=== PATIENT | female | born 1955 | race Caucasian/White ===

== ENCOUNTER 2019-12-19 10:33 | Inpatient (IN) ==
[2019-12-19 14:14] LABS: URINE SOURCE CLEAN CATCH
[2019-12-19 14:17] LABS: BILIRUBIN URINE NEGATIVE (NEGATIVE); BLOOD URINE LARGE (NEGATIVE); COLOR BROWN; GLUCOSE URINE NEGATIVE (NEGATIVE); KETONE URINE NEGATIVE (NEGATIVE); LEUKOCYTES URINE LARGE (NEGATIVE); NITRITE URINE NEGATIVE (NEGATIVE); PROTEIN URINE 300 mg/dL (NEGATIVE); SP GRAVITY URINE 1.028; TURBIDITY URINE TURBID (CLEAR); UR EPITHELIAL CELLS <10 /HPF (<10); URINE BACTERIA NEGATIVE /HPF; URINE RBC 20-40 /HPF (<10); URINE WBC TNTC /HPF (<10); UROBILINOGEN URINE NORMAL (NORMAL)
[2019-12-19] MEDS ORDERED: TORADOL IV ONE (14:39)
[2019-12-19] MEDS ORDERED: NS 1,000 ML IV ONE (14:39)
[2019-12-19] MEDS ORDERED: ROCEPHIN 1 GM in NS 50 ML IV ONE (14:46)
[2019-12-19 15:38] LABS: BASO# 0.06 X1000 (0.0-0.2); BASO% 0.3 % (0.0-0.8); EOS# 0.09 X1000 (0.0-0.7); EOS% 0.4 % (0.0-10.0); HEMATOCRIT 45.2 % (37.0-47.0); IMM GRAN# 0.05 X1000 (0.0-0.04); IMM GRAN% 0.2 % (0.0-0.5); LYMPH# 2.57 X1000 (1.2-3.4); LYMPH% 12.7 % (20.5-51.1); MCH 29.5 PG (27-31); MCV 95.2 FL (81-99); MONO# 1.35 X1000 (0.11-0.59); MONO% 6.7 % (1.7-9.3); MPV 9.9 FL (7.4-10.4); NEUT# 16.06 X1000 (1.4-6.5); NEUT% 79.7 % (42.2-75.2); PLT 302 X1000 (130-400); RBC 4.75 XMIL (4.2-5.4); RDW 15.4 % (11.5-14.5); WBC 20.18 X1000 (4.8-10.8)
--- NOTE | 2019-12-19 15:48 | Diag Imaging Result Doc PS360 ---
EXAM: CT ABDOMEN/PELVIS W/O CONTRAST INDICATION: right flank pain TECHNIQUE: This exam was performed using automated exposure control, adjustment of mA or kV according to patient size, and/or use of iterative reconstruction technique. COMPARISON: 11/07/2017 FINDINGS: There has been a prior cholecystectomy. There is a small cystic appearing focus at the inferior aspect of the liver that is stable. The liver is unremarkable, otherwise. The spleen exhibits an irregular morphology. This may be due to a distant trauma or could be congenital. It is stable. The pancreas and adrenal glands are essentially unremarkable. There is bilateral nephrolithiasis and there is a large obstructing stone in the proximal right ureter just distal to the right UPJ measuring up to 8 mm and causing severe right hydronephrosis. There is no hydronephrosis on the left. The urinary bladder is nondistended. There is evidence of a prior hysterectomy. There are metallic anatoly associated with the stomach. There is no evidence of focal bowel wall thickening or bowel obstruction. There is abundant stool in the colon. There are bilateral fat-containing inguinal hernias. No free abdominal gas or free fluid is identified. IMPRESSION: 1.Bilateral nephrolithiasis with an 8 mm obstructing stone in the proximal right ureter causing severe right hydronephrosis. 2.Possible constipation. 3.Other incidental/nonacute findings detailed above. Electronically signed by Neymar Spence 12/19/2019 3:45 PM
[2019-12-19 15:51] LABS: ALB/GLOB RATIO 1.3; ALBUMIN 3.9 g/dL (3.5-5.0); CALCIUM 9.3 mg/dL (8.8-10.2); CREATININE 1.3 mg/dL (0.5-0.9); POTASSIUM 4.6 mmol/L (3.5-5.1); TOTAL BILIRUBIN 0.46 mg/dL (0.20-1.00); TOTAL PROTEIN 6.9 g/dL (6.3-8.3)
[2019-12-19 17:08] LABS: INR 1.04; PROTIME 13.7 Seconds (11.0-16.0)
[2019-12-19 17:09] LABS: PTT 28.7 Seconds (22.3-41.8)
--- NOTE | 2019-12-19 17:11 | PROVIDER DOCUMENTATION ---
This chart was entered by Suzy Mathur Scribe, acting as scribe for Sary Moe MD. HPI-Female /OB/Breast - General Chief Complaint: Flank Pain Stated Complaint: POSS KIDNEY STONE Time Seen by Provider: 12/19/19 14:03 Source: reports: patient Allergies/Adverse Reactions: Patient Allergies Allergy/AdvReac Type Severity Reaction Status Date / Time ondansetron [From Zofran] Allergy Mild ITCHING Verified 12/19/19 13:48 Home Medications: Home Medication List Medication Instructions Recorded Confirmed Last Taken Type Amlodipine Besylate [Norvasc] 10 mg PO DAILY 12/09/15 11/09/17 08/14/17 08:30 History LISINOpril [Prinivil] 5 mg PO DAILY #30 tablet 12/16/15 11/09/17 08/13/17 08:00 Rx Pantoprazole [Protonix] 40 mg PO DAILY@0700 01/12/16 11/09/17 08/13/17 07:00 History Trazodone [Desyrel] 50 mg PO QHS 01/12/16 11/09/17 08/13/17 21:00 History Hydrocodone/Acetaminophen [[place] 1 each PO Q6HR 03/22/16 11/09/17 08/14/17 08:30 History 10-325 Tablet] Metoprolol Succinate E.r. [Toprol 25 mg PO DAILY 03/22/16 11/09/17 08/14/17 08:30 History Xl] Amitriptyline [Elavil] 25 mg PO HS 07/25/16 11/09/17 08/13/17 21:00 History Bupropion HCl [Wellbutrin Xl] 150 mg PO DAILY 08/03/17 11/09/17 08/14/17 08:30 History Gabapentin [Neurontin] 800 mg PO BID 11/09/17 11/09/17 Unknown History - History of Present Illness-Female /OB Nature of Presenting Problem: Patient is a 64 year old female who presents with right flank pain. States flank pain radiates to right groin. Reports dysuria with pain. States symptoms started this morning. Reports finishing Macrobid for an UTI recently. History of kidney stones. Does patient report she is ?: No Location of complaint: reports: right flank Radiation: reports: groin (right) Quality of Pain: reports: aching Severity in ED: reports: mild Onset/Duration: reports: this morning Timing: reports: still present Context/Activities at Onset: reports: light activity Urinary Symptoms: reports: dysuria Associated Symptoms: reports: denies symptoms Similar Symptoms Previously?: No Recently seen or treated by another doctor?: Yes Review of Systems - Adult - REVIEW OF SYSTEMS - ADULT Constitutional: reports: no symptoms reported Eyes: reports: no symptoms reported Ears, Nose, Mouth & Throat: reports: no symptoms reported Cardiovascular: reports: no symptoms reported Respiratory: reports: no symptoms reported Gastrointestinal: reports: see HPI, abdominal pain (right groin). denies: nausea, vomiting Genitourinary: reports: see HPI, dysuria, flank pain (right) Musculoskeletal: reports: no symptoms reported Integumentary: reports: no symptoms reported Neurological: reports: no symptoms reported Psychiatric: reports: no symptoms reported Endocrine: reports: no symptoms reported Hematologic/Lymphatic: reports: no symptoms reported Allergic/Immunologic: reports: no symptoms reported All Other Systems: Reviewed and Negative Past History - Adult - PAST MEDICAL HISTORY-ADULT Review of Records: reports: Old Records Reviewed, Nursing Assessment Review, Medications Reviewed, Social history reviewed & non-contributory. Major Childhood Illnesses: reports: denies history Cardiovascular: reports: CAD (carotid stenosis), HTN, hyperlipidemia Respiratory: reports: denies history Gastrointestinal: reports: denies history Obstetrical/Gynecological: reports: other Genitourinary: reports: kidney stones Musculoskeletal: reports: chronic pain, fibromyalgia Neurological: reports: denies history Psychiatric: reports: denies history Endocrine/Immune: reports: denies history Other Conditions: reports: denies history - PRIOR SURGERIES/PROCEDURES Surgical/Procedure History: reports: cholecystectomy (partial spleenectomy and liver), hysterectomy, BTL, tonsillectomy, other (partial spleenectomy and liver) - IMMUNIZATION STATUS Childhood Immunizations: See Nurse Assessment Flu Vaccine: See Nurse Assessment - FAMILY HISTORY Family History: reviewed, not pertinent - SOCIAL HISTORY Smoking: denies Substance Use: denies Living Situation: family Physical Exam-General - PHYSICAL EXAM-ADULT Initial Vital Signs Reviewed: Yes - CONSTITUTIONAL General Appearance: alert, no apparent distress - HEAD, EARS, NOSE, MOUTH & THROAT HENMT: normocephalic/atraumatic, moist mucous membranes - RESPIRATORY Respiratory: chest non-tender, lungs clear, normal breath sounds - CARDIOVASCULAR Cardiovascular: regular rate, rhythm - GASTROINTESTINAL (ABDOMEN) Abdominal Exam: normal bowel sounds, non tender, soft - MUSCULOSKELETAL Back Exam: CVA tenderness (right) Extremity: non-tender, normal inspection - SKIN Integumentary: normal color, normal turgor, warm/dry - NEUROLOGIC Neurologic: grossly normal - PSYCHIATRIC Psych/Mental Status: normal mood/affect, normal thought content, normal thought process, oriented x 3 Progress - PLAN OF CARE/RESULTS Progress/Plan/Lab Results: Vital Signs - 8 hr 12/19/19 11:08 Temperature 99.0 F Pulse Rate 98 H Respiratory Rate 18 Blood Pressure 120/76 O2 Sat by Pulse Oximetry 95 Laboratory Results - last 24 hr 12/19/19 12/19/19 12/19/19 11:17 15:15 15:15 WBC 20.18 H RBC 4.75 Hgb 14.0 Hct 45.2 MCV 95.2 MCH 29.5 MCHC 31.0 L RDW Std Deviation 15.4 H Plt Count 302 MPV 9.9 Immature Gran % (Auto) 0.2 Neut % (Auto) 79.7 H Lymph % (Auto) 12.7 L Cook % (Auto) 6.7 Eos % (Auto) 0.4 Baso % (Auto) 0.3 Immature Gran # (Auto) 0.05 H Neut # (Auto) 16.06 H Lymph # (Auto) 2.57 Cook # (Auto) 1.35 H Eos # (Auto) 0.09 Baso # (Auto) 0.06 PT INR PTT (Actin FS) Sodium 141 Potassium 4.6 Chloride 104 Carbon Dioxide 27 Anion Gap 10 BUN 21 Creatinine 1.3 H Estimated GFR/1.73 m2 41 BUN/Creatinine Ratio 16 Glucose 105 H Calculated Osmolality 285 Calcium 9.3 Magnesium Total Bilirubin 0.46 AST 20 ALT 11 Alkaline Phosphatase 66 Creatine Kinase Troponin T High Sens Total Protein 6.9 Albumin 3.9 Globulin 3.0 Albumin/Globulin Ratio 1.3 Urine Source CLEAN CATCH Urine Color BROWN Urine Turbidity TURBID Urine pH 6.0 Ur Specific [place] 1.028 Urine Protein 300 A Ur Glucose (Stick) NEGATIVE Ur Ketones (Stick) NEGATIVE Urine Blood LARGE A Urine Nitrite NEGATIVE Urine Bilirubin NEGATIVE Urobilinogen Dipstick NORMAL Urine Leukocytes LARGE A Urine WBC (Auto) TNTC A Urine RBC (Auto) 20-40 A U Epithel Cells (Auto) <10 Urine Bacteria (Auto) NEGATIVE Urine Crystals Not Reportable Small Round Cells Not Reportable Urine Casts Not Reportable Urine Yeast-like Cells Not Reportable 12/19/19 12/19/19 12/19/19 15:15 15:15 15:15 WBC RBC Hgb Hct MCV MCH MCHC RDW Std Deviation Plt Count MPV Immature Gran % (Auto) Neut % (Auto) Lymph % (Auto) Cook % (Auto) Eos % (Auto) Baso % (Auto) Immature Gran # (Auto) Neut # (Auto) Lymph # (Auto) Cook # (Auto) Eos # (Auto) Baso # (Auto) PT 13.7 INR 1.04 PTT (Actin FS) 28.7 Sodium Potassium Chloride Carbon Dioxide Anion Gap BUN Creatinine Estimated GFR/1.73 m2 BUN/Creatinine Ratio Glucose Calculated Osmolality Calcium Magnesium Total Bilirubin AST ALT Alkaline Phosphatase Creatine Kinase 92 Troponin T High Sens 35 H Total Protein Albumin Globulin Albumin/Globulin Ratio Urine Source Urine Color Urine Turbidity Urine pH Ur Specific [place] Urine Protein Ur Glucose (Stick) Ur Ketones (Stick) Urine Blood Urine Nitrite Urine Bilirubin Urobilinogen Dipstick Urine Leukocytes Urine WBC (Auto) Urine RBC (Auto) U Epithel Cells (Auto) Urine Bacteria (Auto) Urine Crystals Small Round Cells Urine Casts Urine Yeast-like Cells 12/19/19 15:15 WBC RBC Hgb Hct MCV MCH MCHC RDW Std Deviation Plt Count MPV Immature Gran % (Auto) Neut % (Auto) Lymph % (Auto) Cook % (Auto) Eos % (Auto) Baso % (Auto) Immature Gran # (Auto) Neut # (Auto) Lymph # (Auto) Cook # (Auto) Eos # (Auto) Baso # (Auto) PT INR PTT (Actin FS) Sodium Potassium Chloride Carbon Dioxide Anion Gap BUN Creatinine Estimated GFR/1.73 m2 BUN/Creatinine Ratio Glucose Calculated Osmolality Calcium Magnesium 1.8 Total Bilirubin AST ALT Alkaline Phosphatase Creatine Kinase Troponin T High Sens Total Protein Albumin Globulin Albumin/Globulin Ratio Urine Source Urine Color Urine Turbidity Urine pH Ur Specific [place] Urine Protein Ur Glucose (Stick) Ur Ketones (Stick) Urine Blood Urine Nitrite Urine Bilirubin Urobilinogen Dipstick Urine Leukocytes Urine WBC (Auto) Urine RBC (Auto) U Epithel Cells (Auto) Urine Bacteria (Auto) Urine Crystals Small Round Cells Urine Casts Urine Yeast-like Cells Orders Category Date Time Status Admit Patient To Inpatient Status Routine AdmDCTranf 12/19/19 17:32 Active Cardiac Monitoring DIRECTED Care 12/19/19 16:51 Active Daily Weights 0500 Care 12/19/19 17:29 Active Intake and Output-Strict ORDERED Care 12/19/19 17:29 Active Notify MD of + Sepsis Screen NOW Care 12/19/19 16:51 Active Notify Physician As Ordered Care 12/19/19 16:51 Active Nursing- MD Consult Request ROUTINE Care 12/19/19 16:59 Active Vital Signs Order Q 4-HR ASSESS Care 12/19/19 17:31 Active Z-Document. for Tele Applied ORDERED Care 12/19/19 17:28 Active MD [Physician/Provider Consults] Routine Cons 12/19/19 16:58 Ordered Heart Healthy Diet Diet 12/19/19 17:33 Active CHEST-1 VIEW [RAD] Stat Exams 12/19/19 16:[address] ABDOMEN/PELVIS W/O CONTRAST [CT] Stat Exams 12/19/19 14:25 Completed BASIC METABOLIC PANEL [CHEM] DAILY Lab 12/20/19 06:00 Ordered BASIC METABOLIC PANEL [CHEM] DAILY Lab 12/21/19 06:00 Ordered BASIC METABOLIC PANEL [CHEM] DAILY Lab 12/22/19 06:00 Ordered BLOOD CULTURE [BLDCUL] Stat Lab 12/19/19 16:51 Uncollected CBC WITH DIFF [HEME] DAILY Lab 12/20/19 06:00 Ordered CBC WITH DIFF [HEME] DAILY Lab 12/21/19 06:00 Ordered CBC WITH ELECTRONIC DIFF [HEME] Stat Lab 12/19/19 15:15 Completed CK PROFILE [SP CHEM] Stat Lab 12/19/19 15:15 Completed COMPREHENSIVE METABOLIC PANEL [CHEM] Stat Lab 12/19/19 15:15 Completed LACTATE, PLASMA [CHEM] Lab 12/19/19 17:00 Uncollected LACTATE, PLASMA [CHEM] Lab 12/19/19 20:00 Uncollected LACTATE, PLASMA [CHEM] Lab 12/19/19 23:00 Uncollected MAGNESIUM [CHEM] Stat Lab 12/19/19 15:15 Completed PROTIME WITH INR [COAG] Stat Lab 12/19/19 15:15 Completed PTT [COAG] Stat Lab 12/19/19 15:15 Completed TROPONIN T HIGH SENSITIVITY Stat Lab 12/19/19 15:15 Completed URINALYSIS W/POSS RFLX CULT [URINALYSIS] Stat Lab 12/19/19 11:17 Completed URINE CULTURE [RM] Routine Lab 12/19/19 12:00 Received URINE MANUAL MICROSCOPIC [URINALYSIS] Stat Lab 12/19/19 11:17 Completed 0.9% Sodium Chloride Inj [Ns] 1,000 ml Med 12/19/19 17:30 Ordered IV 100 mls/hr 0.9% Sodium Chloride Inj [Ns] 1,000 ml Med 12/19/19 14:39 Discontinued IV 999 mls/hr Acetaminophen [Tylenol] Med 12/19/19 17:31 Ordered 650 mg PO Q6H PRN PRN CefEPIME [Maxipime] 1 gm Med 12/19/19 17:30 Ordered 0.9% Sodium Chloride Inj [Ns] 50 ml IV Q12H CefTRIAXONE [Rocephin] 1 gm Med 12/19/19 14:46 Discontinued 0.9% Sodium Chloride Inj [Ns] 50 ml IV NOW Hydrocodone/APAP 5 mg/325 mg [[place]-5] Med 12/19/19 17:32 Ordered 1 each PO Q6H PRN PRN Ketorolac [Toradol] Med 12/19/19 14:39 Discontinued 30 mg IV NOW ONE Prochlorperazine [Compazine] Med 12/19/19 17:30 Ordered 10 mg IV 4XDAY PRN PRN Oxygen Device Stat Oth 12/19/19 16:51 Active Pulse Oximetry Routine Oth 12/19/19 17:30 Active Telemetry [OM.EQ] Routine Oth 12/19/19 17:28 Active Transfer/Admit Order [TRANSFER] Routine Transfer 12/19/19 17:32 Ordered Result Diagrams: 12/19/19 15:15 12/19/19 15:15 - CT/MRI 1 CT Study: Abdomen, Pelvis Impression: See EMR Report ( EXAM: CT ABDOMEN/PELVIS W/O CONTRAST INDICATION: right flank pain TECHNIQUE: This exam was performed using automated exposure control, adjustment of mA or kV according to patient size, and/or use of ite rative reconstruction technique. COMPARISON: 11/07/2017 FINDINGS: There has been a prior cholecystectomy. There is a small cystic appearing focus at the inferior aspect of the liver that is stable. The liver is unremarkable, otherwise. The spleen exhibits an irregular morphology. This may be due to a distant trauma or could be congenital. It is stable. The pancreas and adrenal glands are essentially unremarkable. There is bilateral nephrolithiasis and there is a large obstructing stone in the proximal right ureter just distal to the right UPJ measuring up to 8 mm and causing severe right hydronephrosis. There is no hydronephrosis on the left. The urinary bladder is nondistended. There is evidence of a prior hysterectomy. There are metallic anatoly associated with the stomach. There is no evidence of focal bowel wall thickening or bowel obstruction. There is abundant stool in the colon. There are bilateral fat- containing inguinal hernias. No free abdominal gas or free fluid is identified. IMPRESSION: 1.Bilateral nephrolithiasis with an 8 mm obstructing stone in the proximal right ureter causing severe right hydronephrosis. 2.Possible constipation. 3.Other incidental/nonacute findings detailed above. Electronically signed by Neymar Spence 12/19/2019 3:45 PM 12/19/19 1545 I nterpreting Physician: Neymar Spence MD Dictated Date/Time: 12/19/19 1540 cc: Sary Moe MD; Ofelia Aggarwal MD) - CONSULTS/PCP/HOSPITALIST Notification #1 *Consult/PCP/Hospitalist*: [place] Time Discussed: 17:00 Consult Disposition: Will see in ED, other #2 Consult: Dr. Cavanaugh Time Discussed: 17:36 Consult Disposition: Admit Departure - Departure Date of Disposition Decision: 12/19/19 Time of Disposition Decision: 16:10 DIAGNOSIS: Renal insufficiency, Hydronephrosis of right kidney, UTI (urinary tract infection), Ureterolithiasis Disposition: HOME 01 Certified Medical Emergency: Emergent Condition: Stable Referrals and Follow-Ups: Ofelia Aggarwal MD [Primary Care Provider] - - Critical Care Note This patient required my direct & personal management of CC.: No Attestation - Physician/ JED Attestation The physician spent face to face time with patient:: Yes Advanced Practice Provider documentation review:: Supervising physician onsite and consulted in the evaluation and care of this patient. The physician did have a face to face encounter with the patient. This chart was documented by the shavon scribe, (Suzy Mathur Scribe) and accurately reflects the services I performed and decisions made by me, Sary Moe MD, as attested by the provider's signature.
--- NOTE | 2019-12-19 17:21 | Diag Imaging Result Doc PS360 ---
EXAM: CHEST-1 VIEW HISTORY: Sepsis protocol TECHNIQUE: Single view COMPARISON: 11/11/2017 FINDINGS: The lungs are well expanded. The heart is not enlarged. The vessels are not distended. There are no infiltrates. No effusion identified. IMPRESSION: No pneumonia Electronically signed by Enrique Wall 12/19/2019 5:19 PM
[2019-12-19] MEDS ORDERED: COMPAZINE IV PRN (17:30)
[2019-12-19] MEDS ORDERED: NS 1,000 ML IV SCH (17:30)
[2019-12-19] MEDS ORDERED: TYLENOL PO PRN (17:31)
[2019-12-19] MEDS ORDERED: NORCO-5 PO PRN (17:32)
[2019-12-19 19:50] LABS: UR PROT RANDOM 362.5 mg/dL
--- NOTE | 2019-12-19 20:40 | HISTORY AND PHYSICAL ---
PRIMARY CARE PHYSICIAN: Dr. Ofelia Aggarwal. UROLOGIST: Dr. Alvarez. CHIEF COMPLAINT: "I started having flank pain this morning and blood in my urine." HISTORY OF PRESENT ILLNESS: Ms. Valerio is a 64-year-old female, with a history of recurrent UTIs and known bilateral renal stones with multiple urologic procedures, who initially presented to the ER today with a chief complaint of right flank pain associated with abdominal pain. The patient reports that she has been on antibiotic therapy all last month. She was seen by Dr. Aggarwal and given a prescription for Bactrim DS, which she completed the 10-day course. She had a repeat urinalysis done and was noted to still have urinary tract infection, and was given a 10-day course of Macrobid, which she just completed. The patient reports that she has not been having fever, chills, or change in appetite. She also noted that she had blood in her urine, so that concerned her along with the flank pain, and decided to come to the ER today. In the ER, a CT of the abdomen and pelvis was done that revealed bilateral nephrolithiasis, with an 8 mm obstructing stone in the proximal right ureter, causing severe right hydronephrosis. Also, the patient was noted to have a white blood cell count of 20,000 and a creatinine of 1.3. PAST MEDICAL HISTORY: 1. Recurrent urinary tract infections. 2. Hypertension. 3. Chronic back pain. 4. Fibromyalgia. 5. Bilateral renal stones. 6. Right hydronephrosis. 7. Osteoporosis. 8. Right ureteral stone. 9. GERD. PAST SURGICAL HISTORY: 1. Left trochanteric fixation nail placement. 2. Left knee screw removal. 3. Cholecystectomy. 4. Splenectomy. 5. Hysterectomy. 6. Tonsillectomy. 7. Bilateral tubal ligation. 8. Liver resection. 9. Cystoscopy with right double-J stent in November 2015. 10. Lithotripsy with right double-J stent removal in January 2016. 11. Cystoscopy with right ureteroscopy in March 2016. 12. Cystoscopy with right percutaneous nephrostolithotomy in July 2016. 13. Right ORIF of trimalleolar ankle fracture. FAMILY HISTORY: Reviewed and noncontributory. SOCIAL HISTORY: The patient is . She is retired. She denies any tobacco, alcohol or illicit drug use. The patient has 3 children. ALLERGIES: Zofran. HOME MEDICATIONS: The medication list is not available at this time. REVIEW OF SYSTEMS: A 12-point review of systems has been performed. Please refer to the History of Present Illness for pertinent positives and negatives. PHYSICAL EXAMINATION: VITAL SIGNS: Temperature 99 degrees, blood pressure 120/76, heart rate 98, respirations 18, O2 saturations 95% on room air. GENERAL: This is an elderly female sitting up in the stretcher, in no acute distress. SKIN: No rashes. No lesions. Normal capillary refill. HEENT: Normocephalic. PERRLA. EOMI. Oral mucosa is moist. Trachea is midline. NECK: Supple. No JVD. HEART: S1, S2 normal. Regular rate and rhythm. LUNGS: Clear to auscultation bilaterally. No wheezing. No rales. No rhonchi. ABDOMEN: Positive bowel sounds. Soft, nontender, and nondistended. BACK: Positive for right flank tenderness. EXTREMITIES: No edema, no cyanosis, no calf tenderness. Peripheral pulses are palpable. NEUROLOGIC: The patient is alert and oriented x4. No focal neurologic deficits noted. Cranial nerves 2 through 12 intact. LABS: White blood cell count 20, hemoglobin 14, hematocrit 45, platelets 302,000. INR 1. Sodium 141, potassium 4.6, chloride 104, CO2 27, BUN 21, creatinine 1.3, glucose 105. UA has large leukocytes, positive for WBCs, large blood. IMAGING: CT of the abdomen and pelvis revealed bilateral nephrolithiasis with an 8 mm obstructing stone in the proximal right ureter, causing severe right hydronephrosis. Constipation. Chest x-ray: No acute disease. ASSESSMENT AND PLAN: 1. Bilateral nephrolithiasis with an obstructing right ureteral stone, with severe right hydronephrosis and urinary tract infection. The patient will be admitted. We will start intravenous fluids and broad-spectrum antibiotics. A urine culture has been obtained. Blood cultures have also been ordered. We will also consult with the urologist. We will make the patient n.p.o. after midnight for a possible urologic procedure. 2. Recurrent UTI. A urine culture has been obtained. Will start IV antibiotic therapy. 3. Hypertension. Controlled. We will restart the patient's antihypertensive regimen. 4. Osteoporosis. Aware. 5. Leukocytosis. Likely secondary to the patient's underlying urinary tract infection. The patient has been started on antibiotics. 6. Gastroesophageal reflux disease. We will start the patient on Protonix. 7. Acute kidney injury. This is likely secondary to obstruction as a result of the patient's obstructing ureteral stone. The patient is on intravenous fluids. We will monitor her urine output closely. We will also order Brooks catheter to be placed. 8. Deep vein thrombosis prophylaxis. We will start the patient on sequential compression devices. 9. Disposition. The patient and her are in agreement with the treatment plan, and they are agreeable to admission. cc: Kusum Fernandez MD MTDD
[2019-12-19] MEDS: MORPHINE IV PRN (20:44)
[2019-12-19] MEDS: MAXIPIME 1 GM in NS 50 ML IV SCH (20:47)
[2019-12-19] MEDS: NS 1,000 ML IV SCH (20:48)
[2019-12-20 04:17] LABS: BASO# 0.04 X1000 (0.0-0.2); BASO% 0.3 % (0.0-0.8); EOS# 0.17 X1000 (0.0-0.7); EOS% 1.1 % (0.0-10.0); HEMATOCRIT 42.3 % (37.0-47.0); HEMOGLOBIN 13.1 g/dL (12.0-16.0); IMM GRAN# 0.04 X1000 (0.0-0.04); IMM GRAN% 0.3 % (0.0-0.5); LYMPH% 18.9 % (20.5-51.1); MCH 29.5 PG (27-31); MCV 95.3 FL (81-99); MONO# 1.13 X1000 (0.11-0.59); MONO% 7.6 % (1.7-9.3); MPV 9.6 FL (7.4-10.4); NEUT# 10.67 X1000 (1.4-6.5); NEUT% 71.8 % (42.2-75.2); PLT 237 X1000 (130-400); RBC 4.44 XMIL (4.2-5.4); RDW 15.3 % (11.5-14.5); WBC 14.85 X1000 (4.8-10.8)
[2019-12-20 04:56] LABS: AGAP 9; BUN 17 mg/dL (8-22); CALCIUM 7.6 mg/dL (8.8-10.2); CHLORIDE 108 mmol/L (98-107); COSMO 283; CREATININE 0.9 mg/dL (0.5-0.9); ESTIMATED GFR > 60; GLUCOSE 104 mg/dL (70-104); POTASSIUM 3.6 mmol/L (3.5-5.1); SODIUM 141 mmol/L (136-145); TCO2 24 mmol/L (25-35)
[2019-12-20] MEDS: PROTONIX IV SCH (06:14)
[2019-12-20] MEDS: NS 1,000 ML IV SCH ×2 (06:14→16:54)
[2019-12-20] MEDS: SODIUM CHLORIDE 0.9% INJ SCH (06:15)
[2019-12-20] MEDS: MORPHINE IV PRN ×4 (06:19→21:21)
[2019-12-20] MEDS ORDERED: NORCO-10 PO SCH (08:00)
[2019-12-20] MEDS: TOPROL XL PO SCH (08:15)
[2019-12-20] MEDS: MAXIPIME 1 GM in NS 50 ML IV SCH ×2 (10:27→21:25)
[2019-12-20] MEDS ORDERED: XYLOCAINE-MPF 2% ONE (13:46)
[2019-12-20] MEDS ORDERED: DIPRIVAN 1% ONE (13:46)
[2019-12-20] MEDS ORDERED: ROBINUL ONE ×2 (13:46→14:46)
[2019-12-20] MEDS ORDERED: DECADRON ONE (14:18)
[2019-12-20] MEDS ORDERED: TORADOL ONE (14:18)
[2019-12-20] MEDS ORDERED: PHENERGAN ONE (14:19)
[2019-12-20] MEDS ORDERED: ZEMURON ONE (14:42)
--- NOTE | 2019-12-20 14:45 | CONSULTATION ---
DATE OF CONSULTATION: 12/20/2019 CHIEF COMPLAINT: Right flank pain with blood in the urine. HISTORY OF PRESENT ILLNESS: Mrs Valerio is a 64-year-old female with history of urinary tract infections as well as nephrolithiasis who has undergone prior urologic procedures, who presented to the emergency room complaining of right flank pain yesterday. She has been treated recently several times with urinary tract infections growing E coli that was pansensitive. However, her symptoms go away and then return. The patient had a CT scan performed in the emergency room which showed a large obstructing right ureteral stone in the mid to proximal ureter measuring approximately 8 mm. The patient states she has had prior stones before, and was seen previously by Dr. Alvarez and underwent extracorporeal shock lithotripsy as well as percutaneous nephrostolithotomy for stones. The patient states her pain is slightly improved since admission. She had an elevated white blood cell count on admission of 20, creatinine 1.3. Labs downtrended today with a white blood cell count of 14.9, and creatinine 0.9. She denies any fevers at home, but has been having dysuria with associated nausea and was admitted to the hospitalist for observation overnight. ALLERGIES: Zofran. HOME MEDICATIONS: 1. Elavil 50 mg p.o. daily. 2. Amlodipine 10 mg p.o. daily. 3. Biotin 1000 mcg p.o. b.i.d. 4. Calcium and vitamin D 1 tablet b.i.d. 5. Zyrtec 10 mg p.o. daily. 6. Prolia 60 mg subcutaneous every 6 months. 7. Colace 100 mg b.i.d. 8. Lexapro 100 mg p.o. daily. 9. Gabapentin 100 mg b.i.d. 10. Hydrocodone/ acetaminophen 10/325 mg p.o. t.i.d. 11. Lisinopril 5 mg p.o. daily. 12. Metoprolol 25 mg p.o. daily. 13. Protonix 40 mg p.o. daily. 14. MiraLAX 17 g p.o. daily. 15. Trazodone 50 mg p.o.. PAST MEDICAL HISTORY: 1. Fibromyalgia. 2. Chronic back pain. 3. Recurrent urinary tract infections. 4. History of nephrolithiasis. 5. Osteoporosis. 6. Gastroesophageal reflux disease. 7. Hypertension. PAST SURGICAL HISTORY: 1. Left trochanter fixation. 2. Left knee screw. 3. Cholecystectomy. 4. Splenectomy. 5. Hysterectomy. 6. Tonsillectomy. 7. Bilateral tubal ligation. 8. Liver resection for hemangioma. 9. Extracorporeal shockwave lithotripsy. 10. Ureteroscopy for stones. 11. Right percutaneous nephrostolithotomy in 2016. 12. Right open reduction internal fixation of the ankle. FAMILY HISTORY: Denies family history of malignancy. SOCIAL HISTORY: She denies tobacco, alcohol, illicit drug use. REVIEW OF SYSTEMS: 12 point review of systems performed all pertinent positives and negatives in HISTORY OF PRESENT ILLNESS:. VITAL SIGNS: Temperature 98.1 degrees heart rate 80, blood pressure 140/79. Oxygen saturation 96% on room. PHYSICAL EXAMINATION: General: No acute distress. Resting comfortably in bed. Alert and oriented x3. HEENT: Normocephalic, atraumatic. Pupils equal, round, reactive to light. Neck: Trachea is midline without masses. Respiratory: Good respiratory without audible wheezing or rales. Cardiovascular: Regular rate and rhythm. Abdomen: Soft nondistended. Slight tenderness to palpation of the right flank and right lower abdomen. : No suprapubic tenderness. Urethral catheter in place. Right CVA tenderness. Musculoskeletal: Moving all extremities. Skin: Skin multiple abdominal incisions with no obvious rashes. Several petechiae are seen over the abdomen which appear to be longstanding. Neuro: Moving all extremities without gross motor or sensory deficits. LABS: White cell count 14.9, hemoglobin 13.1, hematocrit 42.3, platelets 237,000. Sodium 142, potassium 3.6, chloride 108, bicarb 28, BUN 17, creatinine 0.9, glucose 104, and calcium 7.6, lactate 0.9. Urinalysis shows 300 protein, large amount of blood, large amount of leukocytes, too numerous to count white blood cells, 20 to 40 RBCs, negative bacteria. IMAGING: CT of the pelvis stone search with images reviewed which showed a large right proximal ureteral stone measuring approximately 8 mm with associated hydronephrosis and several other smaller fragments seen within the kidney themselves. The patient has smaller left-sided renal stones. ASSESSMENT AND PLAN: Ms. Valerio is a 64-year-old with hypertension, fibromyalgia, chronic back pain, history of nephrolithiasis, osteoporosis, gastroesophageal reflux disease, who presents in consultation regarding right proximal ureteral stone. The patient has been having infections with 2 recent urine cultures growing Escherichia coli, likely related to obstructing ureteral stone. She developed significant pain yesterday and presented to the emergency room where CT scan was performed. The stone appears to be quite large and may be impacted. She had some atrophy of the right kidney with several stones in the kidney itself. The patient has had prior procedures on the right kidney on multiple occasions and undergone prior percutaneous nephrostolithotomy. Looking at the record it seems like it has been difficult in the past to get ureteroscope up into her ureter. We will evaluate today with endoscopic evaluation and try to remove her stone. If unable to perform ureteroscopy we will place a stent before dilation and consideration for second- look ureteroscopy in the future. This was relayed to the patient. The patient expresses minimal desire to have a stent. I told her if I was unable to perform the procedure that I would have to place a stent to dilate the ureter and if there was active infection that she would need to keep a stent. She expressed understanding is willing to proceed. We will plan to do this later today. Discussed the risks, benefits, and alternatives to surgical intervention. After thorough discussion, she will proceed. cc: Clemente Cavanaugh MD MTDD
[2019-12-20] MEDS ORDERED: NEOSTIGMINE ONE (14:46)
--- NOTE | 2019-12-20 15:20 | Diag Imaging Result Doc PS360 ---
EXAM: FLUOROSCOPY CYSTO 12/20/2019 HISTORY: RT STENT PLACEMENT, RT STONE BASKET EXT, RT LASER TECHNIQUE: Nine images, three mGy, 13 seconds fluoroscopy time. COMMENT: Ureteroscopy was performed on the right with stent placement. No contrast was administered. By history laser lithotripsy and stone extraction was performed. The stone which was demonstrated at the level of the L3-4 disc space on the right at the beginning the procedure is no longer demonstrated at the end. IMPRESSION: Extraction of right ureteral stone by Dr. Cavanaugh with placement of stent. Electronically signed by Harpal Motley 12/20/2019 3:18 PM
[2019-12-20] MEDS: NORVASC PO SCH (16:48)
[2019-12-20] MEDS: LEXAPRO PO SCH (16:48)
[2019-12-20] MEDS: NEURONTIN PO SCH ×2 (16:48→21:25)
--- NOTE | 2019-12-20 18:45 | PROGRESS NOTE ---
DATE: 12/20/2019 SUBJECTIVE: The patient complains of general malaise and generalized pain, mainly in the right flank. OBJECTIVE: Vital signs: Temperature 98.2 degrees, blood pressure 157/87, heart rate 79, respirations 20, O2 saturation 94% on room air.General: This is an elderly female lying in bed in no acute distress. Heart: S1, S2 normal. Regular rate and rhythm. Lungs: Clear to auscultation bilaterally. Abdomen: Positive bowel sounds. Soft, nontender, nondistended. Extremities: No edema, no cyanosis. Neurologic: The patient is alert and oriented x4. LABORATORY DATA: White blood cell count 14, hemoglobin 13, hematocrit 42, platelets 237,000. Sodium 141, potassium 3.6, chloride 108, CO2 is 24, BUN 17, creatinine 0.9, glucose 104, calcium 7.6. ASSESSMENT AND PLAN: 1. Bilateral nephrolithiasis, with an obstructing stone in the proximal right ureter with severe right hydronephrosis and urinary tract infection. The patient is scheduled for a urologic procedure today. We will continue with antibiotic therapy. So far, the urine culture is growing gram-negative rods. We will continue on cefepime pending culture results. 2. Chronic back pain. Aware. 3. Hypertension. Continue on the current antihypertensive regimen. 4. Fibromyalgia. Continue on the current treatment regimen. 5. Gastroesophageal reflux disease. Continue on Protonix. 6. Deep vein thrombosis prophylaxis. Continue with sequential compression devices. cc: Kusum Fernandez MD
[2019-12-20] MEDS ORDERED: DESYREL PO SCH (21:00)
[2019-12-20] MEDS ORDERED: ELAVIL PO SCH (21:00)
--- NOTE | 2019-12-20 21:48 | OPERATIVE NOTE ---
PROCEDURE DATE: 12/20/2019 PREOPERATIVE DIAGNOSES: 1. Right ureteral stone. 2. Right flank pain. 3. Leukocytosis. POSTOPERATIVE DIAGNOSIS: 1. Right ureteral stone. 2. Right flank pain. 3. Leukocytosis. PROCEDURE PERFORMED: 1. Cystoscopy. 2. Right ureteroscopy with laser lithotripsy. 3. Stone basket extraction. 4. Right ureteral stent placement. SURGEON: Clemente Cavanaugh MD. COMPLICATIONS: None. BLOOD LOSS: Minimal. DRAINS: 1. 6 x 24 cm right ureteral stent. 2. A 16-Egyptian Brooks catheter. SPECIMEN REMOVED: Right ureteral stone. ANESTHESIA: LMA. INDICATION FOR PROCEDURE: Ms. Valerio is a 64-year-old who presented to the emergency room yesterday complaining of flank pain. She has had a long history of nephrolithiasis and presented complaining of flank pain and history of recurrent infections. The patient had a CT scan performed which showed an 8 mm obstructing proximal right ureteral stone with several stones in both kidneys. She was complaining of flank pain and had a leukocytosis of 20,000, which has improved to 14,000 today. She denies any fevers or chills at home. Denies any nausea or vomiting. In talking with her, I recommended cystoscopic evaluation and possible right ureteral stent versus right ureteroscopy and stone removal. Discussed that she has potential to have an infection; however, she has been afebrile with stable vital signs in the hospital. The patient elected to proceed with surgical intervention to remove her stone. I told her if there is a large amount of sediment, we would have to forego surgical intervention to remove the stone today and just place a stent. She expressed understanding and desired to proceed. DESCRIPTION OF PROCEDURE: After informed consent was obtained, patient was brought to the operating room, placed on the operating table in supine position, received preoperative antibiotics, and underwent LMA placement. She was positioned to a dorsal lithotomy position and was prepped and draped in usual sterile fashion. A preoperative time-out was performed with all parties in agreement, including anesthesia, surgical, and nursing staff. At which point I inserted a 21-Egyptian cystourethroscope through the urethra and into the bladder. Once in the bladder, the entirety of the bladder was inspected with no diverticulum, cellules, trabeculations, or papillary lesions. Slight erythematous change was seen throughout the bladder with no significant sediment. No obvious papillary lesions were seen. Both ureteral orifices were visualized at the base of the bladder. The patient's bladder was irrigated out and then a wire was passed through the scope and into the right ureteral orifice and up into the kidney. This seemed to traverse past the stone itself with no significant sediment return, at which point the wire was left in place. The patient's bladder was decompressed and a semi-rigid ureteroscope was advanced through the urethra and into the bladder. Once inside the bladder, the right ureteral orifice was noted to be cannulized and advanced up into the midportion of the ureter, at which point it was a little difficult to pass any further due to the angulation of the ureter itself. A PTFE wire was passed through the scope which allowed for easy passage of the ureteroscope up to the site of the stone. The stone was quite impacted and likely had been present for a number of weeks now. Ingrowth of tissue overlying the stone was seen circumferentially. Ultimately, I was able to use a 365 micron fiber and began to break the stone up systematically. It was broken up and the pieces removed, and this was repeated until the entirety of the stone was retrieved and dropped in the bladder. A large amount of edema was seen at the stone impaction site. No obvious debris or large stone fragments remained. Slowly withdrew the ureteroscope which showed no significant distal ureteral trauma. The ZIPwire was left in place and then a 6 x 24 cm stent was advanced over the wire with good curl within the kidney endoscopically visualized in the bladder. The tethers were removed. The patient's bladder was decompressed and all stone fragments were obtained and sent for analysis. The patient had indwelling catheter reinserted prior to leaving the operating room. The patient was then awoken and was taken to Recovery in stable condition. The patient will be admitted for continued observation and will be followed for urine culture. We will continue to monitor from a urologic standpoint. Please call with questions or concerns. cc: Clemente Cavanaugh MD MTDD
[2019-12-21] MEDS: NS 1,000 ML IV SCH (04:23)
[2019-12-21] MEDS: PROTONIX IV SCH (06:10)
[2019-12-21] MEDS: SODIUM CHLORIDE 0.9% INJ SCH (06:10)
[2019-12-21 08:30] LABS: BASO# 0.01 X1000 (0.0-0.2); BASO% 0.1 % (0.0-0.8); EOS# 0.03 X1000 (0.0-0.7); EOS% 0.2 % (0.0-10.0); HEMATOCRIT 43.1 % (37.0-47.0); HEMOGLOBIN 13.2 g/dL (12.0-16.0); IMM GRAN# 0.03 X1000 (0.0-0.04); IMM GRAN% 0.2 % (0.0-0.5); LYMPH# 1.99 X1000 (1.2-3.4); LYMPH% 15.6 % (20.5-51.1); MCH 29.7 PG (27-31); MCHC 30.6 g/dL (33-37); MCV 97.1 FL (81-99); MONO# 0.61 X1000 (0.11-0.59); MONO% 4.8 % (1.7-9.3); MPV 10.1 FL (7.4-10.4); NEUT# 10.09 X1000 (1.4-6.5); NEUT% 79.1 % (42.2-75.2); PLT 283 X1000 (130-400); RBC 4.44 XMIL (4.2-5.4); RDW 15.8 % (11.5-14.5); WBC 12.76 X1000 (4.8-10.8)
[2019-12-21 08:50] LABS: AGAP 14; BUN 15 mg/dL (8-22); CALCIUM 7.7 mg/dL (8.8-10.2); CHLORIDE 110 mmol/L (98-107); COSMO 285; CREATININE 0.7 mg/dL (0.5-0.9); ESTIMATED GFR > 60; GLUCOSE 115 mg/dL (70-104); POTASSIUM 4.3 mmol/L (3.5-5.1); SODIUM 142 mmol/L (136-145); TCO2 18 mmol/L (25-35)
[2019-12-21] MEDS: LEXAPRO PO SCH (09:07)
[2019-12-21] MEDS: NORVASC PO SCH (09:07)
[2019-12-21] MEDS: NEURONTIN PO SCH (09:07)
[2019-12-21] MEDS: MAXIPIME 1 GM in NS 50 ML IV SCH (09:08)
[2019-12-21] MEDS: TOPROL XL PO SCH (09:08)
[2019-12-21] MEDS: MORPHINE IV PRN (11:50)
[2019-12-21 11:59] VITALS: BP 156/85
--- NOTE | 2019-12-21 13:42 | PROGRESS NOTE ---
DATE: 12/21/2019 SUBJECTIVE: Postoperative day 1 from cystoscopy, right ureteroscopy, laser lithotripsy, stone basket extraction, right ureteral stent placement. The patient did well postoperatively. She remains afebrile with stable vital signs. She denies significant pain today. Her catheter has been draining mostly clear yellow urine. A small amount of pink-tinged urine is seen today with a small amount of sediment present in the tubing. She feels like she is doing well. She is tolerating p.o. intake. Denies any nausea or vomiting. OBJECTIVE: Vital signs: Temperature 97.7 degrees, heart rate 76, blood pressure 146/87, O2 saturations are 94% on room air. General: No acute distress. Resting comfortably in bed. Alert and oriented x3. Respiratory: Good respiratory effort without audible wheezing or rales. Abdomen: Soft, nontender, nondistended. : No suprapubic tenderness. No CVA tenderness. Urethral catheter in place draining clear yellow urine with a small amount of pink tinged, sediment present in the tubing was drained sufficiently with no residual sediment seen proximally in tubing. LABS: White blood cell count 12.7, hemoglobulin 13.2, hematocrit 43.1, platelets 287, sodium 142, potassium 4.3, chloride 110, bicarbonate 18, BUN 15, creatinine 0.7, glucose 115. ASSESSMENT AND PLAN: Mrs. Valerio is a 64-year-old who was taken the operating room yesterday for cystoscopy, right ureteroscopy, lithotripsy and stone basket extraction due to obstructing right ureteral stone. The patient has a history of nephrolithiasis, is undergone prior surgical intervention regarding this. The patient's urine culture currently is growing E coli that is pansensitive, this is the 3rd time she has had E coli in the past month likely related to obstructing stone being present in the ureter. The patient had several stones in both kidneys as well with largest stone burden within the right kidney. She has undergone prior extracorporeal shockwave lithotripsies as well as percutaneous nephrostolithotomy regarding stone disease. She has significant hydronephrosis on her CT scan and now has indwelling stent in place to decompress. Talked with her today regarding management of her renal stones and discussed possible role of extracorporeal shock lithotripsy versus ureteroscopic removal and treating her stones. The patient has undergone ESWL previously but had very dense stones. Will have to assess whether her stones would be appropriate for extracorporeal shock lithotripsy. There is some slight renal atrophy likely from prior percutaneous surgery. Will remove her catheter this morning can transition to p.o. antibiotics as she is pansensitive, blood cultures are negative. A.M labs show improvement in white blood cell count and renal function. We will continue monitor from urologic standpoint. Please call with questions or concerns. cc: Clemente Cavanaugh MD [facility] CENTERChiki
[2019-12-21] MEDS ORDERED: LOVENOX SUBQ SCH (16:00)
--- NOTE | 2019-12-21 21:17 | PROGRESS NOTE ---
DATE: 12/21/2019 SUBJECTIVE: The patient is resting comfortably in bed. She states that she feels a little bit better today. No acute events noted overnight. OBJECTIVE: Vital signs: Temperature 98 degrees, blood pressure 156/85, heart rate 71, respirations 16, O2 saturation is 93% on room air. General: This is an elderly female, lying in bed in no acute distress. Heart: S1, S2 normal. Regular rate and rhythm. Lungs clear to auscultation bilaterally. Abdomen: Positive bowel sounds. Soft, nontender, nondistended. Extremities: No edema, no cyanosis. Neurologic: The patient is alert and oriented x4. LABORATORY DATA: White blood cell count 12, platelets 283,000. Sodium 142, potassium 4.3, chloride 110, CO2 is 18, BUN 15, creatinine 0.7, glucose 115. Urine culture: Pansensitive E. coli. ASSESSMENT AND PLAN: 1. Status post cystoscopy with right ureteroscopy, with laser lithotripsy and right ureteral stent placement secondary to right ureteral stone, with severe hydronephrosis and Escherichia coli urinary tract infection. The patient feels much better. The urine culture is growing Escherichia coli. We will continue with cefepime today since the patient's white blood cell count is starting to decrease. We will likely transition to oral Levaquin tomorrow, and hopefully the patient can be discharged home with urology followup as outpatient. 2. Fibromyalgia. Continue on the current treatment regimen. 3. Chronic back pain. Aware. 4. Gastroesophageal reflux disease. Continue Protonix. 5. Deep vein thrombosis prophylaxis. We will start the patient on Lovenox. cc: Kusum Fernandez MD
--- NOTE | 2019-12-22 14:06 | DISCHARGE SUMMARY ---
ADMISSION DATE: 12/19/2019 DISCHARGE DATE: 12/21/2019 FINAL DISCHARGE DIAGNOSES: 1. Bilateral nephrolithiasis with obstructing stone in the proximal right ureter with severe right hydronephrosis and Escherichia coli urinary tract infection. She is status post cystoscopy with right ureteroscopy with laser lithotripsy and right ureteral stent placement. 2. Fibromyalgia. 3. Urinary tract infection secondary to Escherichia coli. 4. Gastroesophageal reflux disease. 5. Hypertension. 6. Chronic back pain. IMAGING: CT of the abdomen and pelvis performed on 01/08/2020, which revealed bilateral hydronephrosis with an 8 mm obstructing stone in the proximal right ureter causing severe right hydronephrosis. CONSULTATIONS: Urology consultation with Dr. Cavanaugh. PROCEDURES: 1. Cystoscopy. 2. Right ureteroscopy with laser lithotripsy. 3. Stone basket extraction. 4. Right ureteral stent placement. HOSPITAL COURSE: Ms. Valerio is a 64-year-old female with a history of bilateral nephrolithiasis and recurrent urinary tract infection secondary to Escherichia coli as well as multiple urologic procedures secondary to her nephrolithiasis, who presented to the ER with a chief complaint of right flank pain and dysuria and frequency. In the ER a CT of the abdomen and pelvis was done that revealed bilateral nephrolithiasis with an 8 mm obstructing stone in the right ureter associated with right hydronephrosis. Also, the patient was noted to have a urinary tract infection and a leukocytosis of 20,000. In light of these findings, the patient was admitted to the hospitalist service. Blood and urine cultures were obtained. The patient was started on IV cefepime. Urology was consulted. The patient was taken to the OR on 01/09/2020 and underwent a cystoscopy with right ureteroscopy with laser lithotripsy and right ureteral stent placement. The patient's white blood cell count improved over the course of the hospital stay with IV antibiotic therapy. Ultimately, the urine culture grew out Escherichia coli which was pansensitive. The patient continued to improve clinically. The patient was ultimately cleared for discharge home on 12/21/2019 with instructions to continue to take the antibiotics as prescribed. DISCHARGE MEDICATIONS: 1. Norvasc 10 mg p.o. daily. 2. Lisinopril 5 mg oral daily. 3. Trazodone 50 mg oral at bedtime. 4. Protonix 40 mg p.o. daily. 5. [place] 10/325mg 1 tab oral 3 times a day. 6. Metoprolol succinate 25 mg oral daily. 7. Elavil 50 mg oral at bedtime. 8. Neurontin 800 mg oral twice a day. 9. Lexapro 10 mg oral daily. 10. Zyrtec 10 mg p.o. daily. 11. Calcium plus vitamin D 1 capsule oral twice a day. 12. Colace 100 mg oral at bedtime. 13. MiraLAX 17 g oral daily p.r.n. 14. Biotin 2000 mcg oral twice a day. 15. Pyridium 100 mg oral 3 times a day p.r.n. for bladder spasm. 16. Flomax 0.4 mg oral daily. 17. Oxy IR 5 mg oral every 6 hours p.r.n. pain. 18. Ceftin 250 mg oral twice a day. DISCHARGE DIET: Regular diet. ACTIVITY: As tolerated. FOLLOWUP INSTRUCTIONS: The patient is scheduled to follow up with Dr. Cavanaugh on 12/26/2019. The patient will need to follow up with Dr. Ofelia Aggarwal in 1 to 2 weeks. cc: MD Kusum Bone MD [facility]
== END 2019-12-21 15:34 | disposition home or self-care (01) | DRG 661 ==
LOC: ED 10:33 → 3N 17:41
PROVIDERS: ATTEND Internal Medicine